=== PATIENT | female | born 2005 | race Caucasian/White ===

== ENCOUNTER 2025-04-03 07:49 | Emergency (ER) | payer SELFPAY ==
[2025-04-03 07:50] VITALS: BP 103/91; PULSE 72; RESP 16; TEMP 36.6; O2SAT 98; BMI 26.9
--- NOTE | 2025-04-03 08:13 | EX.ED.VIS.HA ---
HPI History of Present Illness Chief Complaint: Headache Informant: patient and friend Narrative Narrative: Patient is a 20-year-old female with history of anxiety presenting with headache. She states she has had a headache for the past 4 to 5 days. States it is behind her eyes. She states is most of the day and then she will wake up and will come back. She tried taking Excedrin this morning and some crackers but threw up. She states the headache is throbbing sharp and stabbing. Patient reports associated photophobia. She states that her vision feels blurry. She is complaining of numbness of her bilateral knees. patient is quite upset about her symptoms and is sobbing uncontrollably. She states that she does have a history of anxiety. Her friend at the bedside states her anxiety has been flared up with her headache. Patient denies any head trauma. Denies any history of prior headaches or migraines. Denies any family history of any known aneurysms. Denies any fever or neck pain. States has never had a headache like this before. Is currently in a walking boot for a high-grade ankle sprain on her left foot but denies any other medical issues. States she does take anxiety medication. PFSH PFSH Allergy/AdvReac Type Severity Reaction Status Date / Time No Known Allergies Allergy Verified 04/03/25 07:50 Social History Smoking Status: Never smoker ROS ROS ED Constitutional Constitutional ED: Denies chills or fever(s) Eyes Eyes: Reports blurry vision ENT ENT ED: Denies rhinorrhea Cardiovascular Cardiovascular: Denies chest pain Gastrointestinal Gastrointestinal: Reports nausea and vomiting; Denies abdominal pain Genitourinary Genitourinary ED: Reports other Details: Denies concern for Musculoskeletal Musculoskeletal: Denies arthralgias or myalgias Integumentary Denies rash Neurologic Neurologic: Reports headache(s) and paresthesias Psychiatric Psychiatric: Reports anxiety Hematologic/Lymphatic Hematologic/Lymphatic: Denies easy bleeding or easy bruising EXAM Physical Exam Const Vital Signs: 04/03/25 07:50 04/03/25 09:50 04/03/25 10:56 Temperature 98 F 98.6 F Temperature Source Oral Pulse Rate 72 75 106 H Respiratory Rate 16 18 18 Blood Pressure 103/91 H 107/59 L 127/65 H Blood Pressure Mean 95 75 85 Pulse Ox 98 100 100 Oxygen Delivery Method Room Air Room Air Positive well nourished and well developed Constitutional Narrative: Patient is sobbing but does not appear to be in any acute distress General Appearance ED: well developed HEENT Reports normocephalic, TM's clear and moist mucous membranes atraumatic Face and Sinus: Negative for sinus tenderness Tympanic Membrane ED: Yes TM's clear Eyes PERRL and EOMs intact bilaterally Neck supple and no meningeal signs Resp normal respiratory effort and clear to auscultation bilaterally Cardio regular rate and regular rhythm GI non-tender and non-distended Extremity normal to inspection and full ROM Extremity Narrative: Reports numbness in the knees however when I touch her knees lately she jerks away and states it hurts Neuro oriented x3, CN's II-XII intact bilaterally and no sensory deficits noted Kyra Coma Scale: document GCS findings Spontaneous Obeys Commands Oriented 15 Sensorium / Orientation: awake and alert Speech: speech normal Motor Exam: strength 5/5 throughout Psych Attitude: agitated Mood & Affect: anxious and tearful Skin Lesions: no lesions Rashes: no rashes MDM MDM MDM Narrative Medical decision making narrative: Patient evaluated for headache. Patient is quite anxious. Vital signs are normal in the emergency room. She denies any history of migraines or headaches. Differential includes sinus headache, intracranial aneurysm, subarachnoid hemorrhage, tension headache, anxiety reaction. She has normal neurologic exam and no nuchal rigidity. Low suspicion for Minnie Barré syndrome or meningitis. Patient is given IV fluids, Zofran and lorazepam. Will obtain imaging before giving Toradol. CT imaging does not show any acute intracranial process. Lab including CBC, BMP normal. Urinalysis negative. Patient given Toradol and then Haldol. On repeat evaluation she states she is feeling better. Her headache is improving. She is calm. She states that she wants to go home now. Given return precautions. Her to follow-up with her primary care doctor for further evaluation. Offered prescription for Zofran but she does not think she needs it. Discussed alternating Excedrin, ibuprofen or Tylenol for headache relief. Discharged home in stable and improved condition. Lab Data Attestation: I reviewed the patient's lab results. Labs: Laboratory Results - last 24 hr 04/03/25 08:20 WBC 8.8 RBC 4.71 Hgb 13.4 Hct 39.9 MCV 84.7 MCH 28.5 MCHC 33.6 RDW Std Deviation 40.5 RDW Coeff of Donya 13.1 Plt Count 268 MPV 9.4 Immature Gran % (Auto) 0.200 Neut % (Auto) 70.4 H Lymph % (Auto) 19.7 [place] % (Auto) 5.0 Eos % (Auto) 4.1 Baso % (Auto) 0.6 Absolute Neuts (auto) 6.2 Absolute Lymphs (auto) 1.73 Nucleated RBC % 0 Sodium 138 Potassium 3.4 Chloride 102 Carbon Dioxide 20.8 L Anion Gap 15 BUN 12 Creatinine 0.74 Estim Creat Clear Calc 113.12 Est GFR (MDRD) Non-Af 118 BUN/Creatinine Ratio 16.6 Glucose 102 H Calcium 9.7 Serum , Qual NEGATIVE Radiography Diagnostic Testing: Clinical Impression(s) from Imaging Studies Head CTA 04/03/25 08:45 IMPRESSION: CTA of the brain is within normal limits. Reading Location: [facility] Discharge Plan Triage Chief Complaint: Headache ED Provider: Minal Mari Dx/Rx/DC Orders Clinical Impression: Headache Instructions: ED Headache Unspecified Primary Care Provider: Care Physician,No Primary Referrals: Alexander Olivera MD [Med Staff - [facility] Medicine Physician] - Activity Restrictions/Additional Instructions: Please follow-up with a family doctor. Do not have You been given referral for 1 today. Alternate [id number] ibuprofen and Tylenol as needed for pain. May also take [id number] Excedrin. Please return if you have worsening or progression of symptoms or further concerns Print Language: Sami Disposition Disposition: Home, Self Care Discharge Date/Time: 04/03/25 11:05
[2025-04-03] MEDS: Lorazepam 2 MG/ML WCH Syringe 0.5 MG IV (08:28)
[2025-04-03] MEDS: 0.9% Normal Saline (1000mL) 1,000 ML 1000 ML IV (08:28)
[2025-04-03 08:31] LABS: Hematocrit 39.9 % (37-47); Hemoglobin 13.4 g/dL (12.0-15.0); Immature Granulocytes Count 0.020 X10^3/uL (0.0-0.0); Mean Corp Hgb Conc 33.6 g/dL (32-36); Mean Corpuscular Volume 84.7 fL (81-99); Mean Platelet Vol. 9.4 fl (6.2-12.0); NRBC Flagged by Analyzer 0 % (0-5); Platelet Count 268 K/mm3 (150-450); RBC Distribution Width CV 13.1 % (11.6-14.6); RBC Distribution Width SD 40.5 fl (35.1-43.9); Red Blood Count 4.71 M/mm3 (4.2-5.4); White Blood Count 8.8 K/mm3 (4.4-11.0)
[2025-04-03 08:44] LABS: Internal QC Validated? YES +Cl - CLEAR BKGD; Pregnancy, Serum, hCG Quali. NEGATIVE Negative; Record Kit Lot#, Serum Preg. 0000962302
--- NOTE | 2025-04-03 08:45 | CT_ITS ---
PROCEDURE: CTA HEAD W/WO CONTRAST 04/03/2025 REASON FOR EXAM: HEADACHE, SEVERE, BLURRY VISION TECHNIQUE: CTA HEAD W/WO CONTRAST Multiplanar Sagittal and Coronal images were obtained. CONTRAST: 98 cc Isovue 370 One or more dose reduction techniques were used (e.g., Automated exposure control, adjustment of the mA and/or kV according to patient size, use of iterative reconstruction technique). RADIATION DOSE SUMMARY: DLP: 1207 mGycm COMPARISON: None FINDINGS: [place]: Patent Anuerysm or AVM: None Distal internal carotid arteries: Patent Anterior cerebral arteries: Patent Middle cerebral arteries: Patent Vertebral arteries: Patent Basilar artery: Patent Posterior cerebral arteries: Patent Other major branches of the posterior circulation: Unremarkable Major venous structures: Patent Non-vascular findings: The scan through the brain is obliquely oriented. There is no mass or hemorrhage. There is no extra-axial collection or midline shift. Javier-white differentiation appears maintained. The visualized paranasal sinuses and mastoid air cells appear clear. CT/CTA Head W/WO Contrast IMPRESSION: CTA of the brain is within normal limits. Reading Location: [facility]
[2025-04-03 09:20] LABS: Anion Gap 15 (5-15); BUN 12 mg/dL (4-19); BUN/Creat Ratio 16.6 RATIO (10-20); Calcium,Total 9.7 mg/dL (7.6-11.0); Carbon Dioxide 20.8 mmol/L (21.0-32.0); Chloride 102 mmol/L (98-108); Estimated Creatinine Clearance 113.12 ml/min (50-250); Glucose 102 mg/dL (70-99); Potassium 3.4 mmol/L (3.3-5.1)
[2025-04-03 09:50] VITALS: BP 107/59; PULSE 75; RESP 18; O2SAT 100
[2025-04-03 10:56] VITALS: BP 127/65; PULSE 106; RESP 18; TEMP 37; O2SAT 100
== END 2025-04-03 11:05 | disposition home or self-care (01) ==
PROVIDERS: Emergency Provider Emergency Medicine; Visit Provider Emergency Medicine
DX: R51.9 Headache, unspecified (principal); F41.9 Anxiety disorder, unspecified; R11.2 Nausea with vomiting, unspecified; R20.2 Paresthesia of skin; H53.8 Other visual disturbances
CPT/HCPCS: 70496; 80048; 84703; 85025; 96361; 96374; 96375; 96376; 99283; Q9967; A4216; J2405